=== PATIENT | male | born 1990 | race Caucasian/White ===

== ENCOUNTER 2016-08-10 05:55 | Emergency (ER) | payer BC ==
[2016-08-10] MEDS ORDERED: NS 0.9% 1000 ML* 1,000 ML IV ONE (06:10)
--- NOTE | 2016-08-10 06:17 | ED ---
Enzo Gonzalez Anna, scribed for Luis May MD on 08/10/16 at 0614 . GI/ HPI - HPI Summary HPI Summary: Patient is a 26 y/o male coming to [facility] presenting with the sudden onset of intermittent diarrhea that began at 1999 last night. He reports having 4-5 episodes of liquid diarrhea and saw bright red blood in his stool. He has additionally had left-sided abd pain since yesterday, of severity 06/12. Denies nausea, emesis. The patient is followed by Dr. Gutiérrez. Patient medications were reviewed this visit. - History of Current Complaint Stated Complaint: BLOODY STOOL Hx Obtained From: Patient, Family/Medical Affairs Specialist - accompanied by friend Onset/Duration: Started Hours Ago, Still Present Timing: Lasting Hours Severity: Moderate Current Severity: Moderate Pain Intensity: 3 - /10 Location of Pain: LUQ, LLQ - Allergy/Home Medications Allergies/Adverse Reactions: Allergies Allergy/AdvReac Type Severity Reaction Status Date / Time Tetracyclines & Related Allergy See Comment Verified 08/10/16 06:00 PMH/Surg Hx/FS Hx/Imm Hx Endocrine/Hematology History: Reports: Other Endocrine/Hematological Disorders - Diabetes insupidus Denies: Hx Diabetes Cardiovascular History: Denies: Hx Hypertension, Hx Pacemaker/ICD History: Denies: Hx Renal Disease Musculoskeletal History: Reports: Other Musculoskeletal History - L3 DJD Sensory History: Denies: Hx Hearing Aid Neurological History: Reports: Hx Headaches Psychiatric History: Denies: Hx Panic Disorder - Surgical History Surgery Procedure, Year, and Place: HERNIA REPAIR 2010. CAULIFLOWER EAR REPAIR 2009 Infectious Disease History: Yes Infectious Disease History: Denies: Traveled Outside the [place] in Last 30 Days - Family History Known Family History: Positive: Hypertension - Hx in father, Other - Hx fibromyalgia, Seegers, brain tumor in mother - Social History Occupation: Student Alcohol Use: None Hx Substance Use: No Substance Use Type: Reports: None Hx Tobacco Use: No Smoking Status (MU): Never Smoked Tobacco Review of Systems Negative: Fever Positive: Abdominal Pain, Diarrhea. Negative: Vomiting, Nausea Genitourinary: Other - hematochezia All Other Systems Reviewed And Are Negative: Yes Physical Exam Triage Information Reviewed: Yes Vital Signs On Initial Exam: Initial Vitals Temp Pulse Resp BP Pulse Ox 98.0 F 71 18 128/75 99 08/10/16 06:00 08/10/16 06:00 08/10/16 06:00 08/10/16 06:00 08/10/16 06:00 Vital Signs Reviewed: Yes Appearance: Positive: Well-Appearing, No Pain Distress Skin: Positive: Warm Head/Face: Positive: Normal Head/Face Inspection Eyes: Positive: KRISTIN ENT: Positive: Hearing grossly normal Neck: Positive: Supple Respiratory/Lung Sounds: Positive: Clear to Auscultation, Breath Sounds Present Cardiovascular: Positive: RRR Abdomen Description: Positive: Nontender, No Organomegaly, Soft Bowel Sounds: Positive: Present Musculoskeletal: Positive: Strength/ROM Intact Neurological: Positive: Sensory/Motor Intact, Alert, Oriented to Person Place, Time Diagnostics - Vital Signs Vital Signs Temp Pulse Resp BP Pulse Ox 08/10/16 06:00 98.0 F 71 18 128/75 99 - Laboratory Result Diagrams: 08/10/16 06:11 Lab Statement: Any lab studies that have been ordered have been reviewed, and results considered in the medical decision making process. Re-Evaluation - Re-Evaluation First Eval Re-Evaluation Time: 06:58 Change: Improved Comment: Discussed results and plan of care with patient. Patient is agreeable with plan. GIGU Course/Dx - Course Assessment/Plan: Patient is a 26 y/o male coming to [facility] presenting with the sudden onset of intermittent diarrhea that began at 1999 last night. He reports having 4-5 episodes of liquid diarrhea and saw bright red blood in his stool. He has additionally had left-sided abd pain since yesterday, of severity 3/10. Denies nausea, emesis. The patient is followed by Dr. Gutiérrez. Labs reveal Pope % of 12.9. UA reveals specific gravity of 1.008, negative for protein and negative for blood. Stool sample is negative for blood. Patient was given fluids in the ED course. Patient will be discharged home with follow up from PCP. - Diagnoses Provider Diagnoses: Abdominal pain, Diarrhea Discharge - Discharge Plan Condition: Stable Disposition: HOME Patient Education Materials: Abdominal Pain (ED), Acute Diarrhea (ED) Referrals: Joyce Boyd NP [Primary Care Provider] - Additional Instructions: Follow up with primary care physician within 48 hours. Return to the Emergency Department for new or worsening symptoms. The documentation as recorded by the Enzo medeiros Anna accurately reflects the service I personally performed and the decisions made by me, Luis May MD.
[2016-08-10 06:40] VITALS: BP 127/72
[2016-08-10 06:42] LABS: Hematocrit 46 % (42-52); Hemoglobin 15.4 g/dl (14.0-18.0); Mean Corpuscular HGB Conc 34 g/dl (31-36); Mean Corpuscular Hemoglobin 30 pg (27-31); Mean Corpuscular Volume 88 fL (80-94); Mean Platelet Volume 8 um3 (7.4-10.4); Red Blood Count 5.22 10^6/ul (4.0-5.4); Red Cell Distribution Width 13 % (10.5-15); White Blood Count 5.2 10^3/ul (3.5-10.8)
[2016-08-10 06:43] LABS: Urine Bilirubin Negative (Negative); Urine Glucose Negative (Negative); Urine Nitrite Negative (Negative)
[2016-08-10 07:09] LABS: Albumin 4.2 g/dL (3.2-5.2); BUN/Creatinine Ratio 18.8 (8-20); C Reactive Protein 1.91 mg/L (< 5.00); Calcium 9.4 mg/dL (8.6-10.3); EGFR African American 123.8 (>60); EGFR Non-African American 96.2 (>60); Globulin 2.7 g/dL (2-4); Magnesium 1.8 mg/dL (1.9-2.7); Potassium 3.9 mmol/L (3.5-5.0); Total Bilirubin 0.6 mg/dL (0.2-1.0); Total Protein 6.9 g/dL (6.4-8.9)
== END 2016-08-10 07:11 | disposition home or self-care (01) ==
LOC: ED 05:55
DX: R10.9 Unspecified abdominal pain (principal); R19.7 Diarrhea, unspecified; E23.2 Diabetes insipidus
CPT/HCPCS: 36415; 80053; 81003; 82272; 83605; 83690; 83735; 85025; 86140; 96360; 99282

== ENCOUNTER 2017-08-15 08:09 | Emergency (ER) | payer BC ==
[2017-08-15] MEDS ORDERED: Lidocaine 1%* 5 ML VIAL INJ ONE (09:13)
--- NOTE | 2017-08-15 09:35 | ED ---
Laceration/Wound HPI - HPI Summary HPI Summary: Patient is a 22-year-old male who presents emergency department for laceration to his right middle finger that occurred just prior to arrival. Patient states he was working on a car when his finger got crushed between 2 pieces of metal. States his last tetanus immunization was within 5 years. Symptoms are mild in severity. Touching the affected area makes symptoms worse. Rest makes symptoms better. No past medical history. - History of Current Complaint Stated Complaint: RT MIDDLE FINGER LAC Time Seen by Provider: 08/15/17 08:32 Hx Obtained From: Patient Pain Intensity: 4 - Allergy/Home Medications Allergies/Adverse Reactions: Allergies Allergy/AdvReac Type Severity Reaction Status Date / Time tetracycline Allergy GI Upset Verified 08/15/17 08:22 Home Medications: Home Medications Amphetamine/Dextroamph ER(NF) [Adderal XR (NF)] 15 mg PO DAILY 08/15/17 [ History Confirmed 08/15/17] Azelastine 0.15% NASAL(NF) [Astepro 0.15% NASAL (NF)] 2 spray NASAL BEDTIME [History Confirmed 08/15/17] Baclofen [Baclofen] 10 mg PO QID PRN 08/15/17 [History Confirmed 08/15/17] Beclomethasone Dipropionate [Qnasl] 2 spray NASAL DAILY 08/15/17 [History Confirmed 08/15/17] Desmopressin TAB (NF) 0.2 mg PO BID 08/15/17 [History Confirmed 08/15/17] Dextroamphetamine/Amphetamine [Dextroamp-Amphetamine 5 mg Tab] 5 mg PO DAILY [History Confirmed 08/15/17] Ibuprofen TAB* [Motrin TAB* 600 MG] 600 mg PO Q8HR PRN 08/15/17 [History Confirmed 08/15/17] LevoCETirizine TAB (NF) [Xyzal TAB (NF)] 5 mg PO DAILY 08/15/17 [History Confirmed 08/15/17] Montelukast Sodium TAB* [Singulair TAB*] 5 mg PO BEDTIME 08/15/17 [History Confirmed 08/15/17] PMH/Surg Hx/FS Hx/Imm Hx Endocrine/Hematology History: Reports: Other Endocrine/Hematological Disorders - diabetes insipidus Denies: Hx Diabetes Cardiovascular History: Denies: Hx Congestive Heart Failure, Hx Hypertension, Hx Pacemaker/ICD Respiratory History: Reports: Other Respiratory Problems/Disorders - environmental allergies worsening History: Denies: Hx Renal Disease Musculoskeletal History: Reports: Other Musculoskeletal History - L3 DJD Sensory History: Denies: Hx Hearing Aid Neurological History: Reports: Hx Headaches Psychiatric History: Denies: Hx Panic Disorder - Surgical History Surgery Procedure, Year, and Place: HERNIA REPAIR 2010. BILAT CAULIFLOWER EAR REPAIR 2009 Infectious Disease History: No Infectious Disease History: Denies: Traveled Outside the [place] in Last 30 Days - Family History Known Family History: Positive: Hypertension - Hx in father, Other - Hx fibromyalgia, Seegers, brain tumor in mother - Social History Alcohol Use: None Hx Substance Use: No Substance Use Type: Reports: None Hx Tobacco Use: No Smoking Status (MU): Never Smoked Tobacco Review of Systems Positive: Other - Laceration to middle right finger Negative: Weakness, Paresthesia, Numbness All Other Systems Reviewed And Are Negative: Yes Physical Exam Triage Information Reviewed: Yes Vital Signs On Initial Exam: Initial Vitals Temp Pulse Resp BP Pulse Ox 97.9 F 68 16 132/72 100 08/15/17 08:23 08/15/17 08:23 08/15/17 08:23 08/15/17 08:23 08/15/17 08:23 Vital Signs Reviewed: Yes Appearance: Positive: Well-Appearing - Patient sitting in bed in no acute distress. Significant other present. Skin: Positive: Warm, Dry Head/Face: Positive: Normal Head/Face Inspection Eyes: Positive: Normal, KRISTIN Neck: Positive: Supple Musculoskeletal: Positive: Other - 1 cm linear laceration noted to the palmar aspect of the distal right middle digit. Tendons are intact. Distal bony tenderness. Neurological: Positive: Normal, CN Intact II-III Psychiatric: Positive: Normal Procedures - Laceration/Wound Repair 1 Location: Other - Right middle finger Length, Depth and Shape: 1cm linear Betadine Prep?: No - hibiclens Laceration/Wound Explored: clean Closure: Single Layer Suture Type: Nylon - 4-0 Number of Sutures: 5 Layer Closure?: No Sterile Dressing Applied?: Yes Diagnostics - Vital Signs Vital Signs Temp Pulse Resp BP Pulse Ox 08/15/17 08:23 97.9 F 68 16 132/72 100 - Laboratory Lab Statement: Any lab studies that have been ordered have been reviewed, and results considered in the medical decision making process. Laceration Repair Course/Dx - Course Course Of Treatment: Patient presenting to the ER for a minor finger laceration. Tetanus is up-to-date. Wound was repaired as above. Suture removal in 7-10 days. Finger splint was placed for comfort and protection for pt.'s request. Advised patient to return to ER for redness, swelling or drainage from wound site. Patient understands and agrees with plan. - Differential Dx Differental Diagnoses: Laceration, Puncture Wound, Tendon Laceration - Clinical Impression Provider Diagnoses: Finger laceration Discharge - Sign-Out/Discharge Documenting (check all that apply): Discharge/Admit/Transfer - Discharge Plan Condition: Good Disposition: HOME Patient Education Materials: Care For Your Stitches (ED) Referrals: Noemi Gutiérrez MD [Primary Care Provider] - Additional Instructions: Suture removal in 7-10 days Keep wound clean and dry Return to ER for redness, swelling or drainage from wound site - Billing Disposition and Condition Condition: GOOD Disposition: HOME
--- NOTE | 2017-08-15 09:45 | RAD ---
Indication: Crush injury distal phalanx third digit. 3 views of the right third digit demonstrates no fracture or dislocation. Soft tissue defect is noted. Tiny rito of increased density is noted in the ulnar aspect at the end of the distal tuft. This may represent minimal foreign body which appears to overlie the nailbed. IMPRESSION: No fracture of the right finger is noted. Soft tissue defect with a tiny metallic density of the ulnar aspect of the nailbed.
[2017-08-15 11:06] VITALS: BP 139/83
== END 2017-08-15 11:03 | disposition home or self-care (01) ==
LOC: ED 08:09
DX: S67.192A Crushing injury of right middle finger, initial encounter (principal); S61.212A Laceration without foreign body of right middle finger without damage to nail, initial encounter; W23.0XXA Caught, crushed, jammed, or pinched between moving objects, initial encounter; Y92.9 Unspecified place or not applicable
CPT/HCPCS: 12001; 73140; 99282